=== PATIENT | male | born 1980 ===

== ENCOUNTER 2021-03-17 12:35 | Emergency (ER) | payer OTHER ==
[~2021-03-17] VITALS: Ht 188 cm; Wt 138.9 kg
[2021-03-17 13:11] LABS: BASOPHILS % (AUTO) 1 % (0-1); EOSINOPHILS % (AUTO) 4 % (1-7); LYMPHOCYTES % (AUTO) 26 % (22-44); MEAN CORPUSCULAR HEMOGLOBIN 29.7 pg (27.5-34.5); MEAN CORPUSCULAR HGB CONC 33.8 g/dL (33.2-36.2); MEAN PLATELET VOLUME 7.5 fL (7.4-10.4); MONOCYTES % (AUTO) 7 % (2-9); NEUTROPHILS % (AUTO) 62 % (42-75); PLATELET COUNT 292 x10^3/uL (130-400); RED BLOOD COUNT 5.17 x10^6/uL (4.38-5.82); RED CELL DISTRIBUTION WIDTH 13.2 % (9.4-14.8)
[2021-03-17 13:25] LABS: ALBUMIN 3.7 g/dL (3.4-5.0); ANION GAP 6 mmol/L (5-15); CALCIUM 8.9 mg/dL (8.5-10.1); CHLORIDE 108 mmol/L (98-107)
[2021-03-17 13:31] LABS: ALANINE AMINOTRANSFERASE 67 U/L (12-78); ALKALINE PHOSPHATASE 72 U/L (45-117); BILIRUBIN,TOTAL 0.4 mg/dL (0.2-1.0); CREATININE 1.36 mg/dL (0.7-1.3); TOTAL PROTEIN 7.6 g/dL (6.4-8.2); TROPONIN I < 0.015 ng/mL (0.000-0.045)
--- NOTE | 2021-03-17 14:18 | NUR ---
wardsperson note: Pt to room from [facility], ambulatory with steady gait, LOYD.
--- NOTE | 2021-03-17 14:42 | NUR ---
ASSUMED CARE OF PATIENT. PATIENT REPORTS TODAY AROUND NOON HE STARTED HAVING 7/10 LEFT CHEST PAIN THAT WENT TO LEFT ARM WHILE DRIVING. PT ALSO REPORTS HE WAS HAVING SOME ANXIETY. VS STABLE. MANAGER OPERATING ON. NSR NOTED. CALL LIGHT IN PLACE. PT SEEN BY DR SUE. WILL CONTINUE TO MONITOR.
[2021-03-17] MEDS ORDERED: LORazepam 1MG TABLET ONE (14:46)
--- NOTE | 2021-03-17 14:48 | NUR ---
LAB IN ROOM
[2021-03-17] MEDS ORDERED: LORazepam 1MG TABLET PO ONE (15:00)
--- NOTE | 2021-03-17 15:20 | NUR ---
PT AMBULATED TO BATHROOM. PT REPORTS SOME ANXIETY. VS STABLE. NO ACUTE DISTRESS NOTED. WILL CONTINUE TO MONITOR.
[2021-03-17 15:58] LABS: TROPONIN I < 0.015 ng/mL (0.000-0.045)
--- NOTE | 2021-03-17 16:07 | NUR ---
PT RESTING IN ROOM. VS STABLE. CALL LIGHT IN PLACE. WILL CONTINUE TO MONITOR.
[2021-03-17 16:35] VITALS: BP 115/67
--- NOTE | 2021-03-17 16:35 | NUR ---
PT REQUESTS TO TALK TO THE SCREENING UNIT REGISTERED NURSE, CALLED AND ON HIS WAY.
--- NOTE | 2021-03-17 17:09 | NUR ---
THANH HAS SEEN PATIENT. PATIENT READY FOR DC
== END 2021-03-17 17:39 | disposition home or self-care (01) ==
LOC: ED 17:18
DX: R07.2 Precordial pain (principal); F41.1 Generalized anxiety disorder
CPT/HCPCS: 36415; 71045; 80053; 84484; 85025; 93005; 99285